=== PATIENT | male | born 1965 | race Caucasian/White ===

== ENCOUNTER 2024-05-23 09:02 | Day surgery (SDC) | payer OTHER ==
[2024-05-22 12:35] VITALS: BMI 27.8
[2024-05-23] MEDS ORDERED: Lidocaine 1% (PF) 30 ML VIAL ONE (11:37)
[2024-05-23] MEDS ORDERED: EPINEPHrine 1 MG/ML VIAL ONE (11:37)
[2024-05-23] MEDS ORDERED: PROPOFOL 20 ML ONE ×2 (11:55→12:17)
[2024-05-23] MEDS ORDERED: Lidocaine 1% PF 5 ML VIAL ONE (11:55)
[2024-05-23] MEDS ORDERED: fentaNYL PF 100 MCG/2 ML SYRINGE ONE (11:55)
[2024-05-23] MEDS ORDERED: Midazolam HCl 2 mg/2 ml Vial ONE (11:56)
[2024-05-23] MEDS ORDERED: Lidocaine 2% 6 ML (Jelly) SYR ONE (12:19)
[2024-05-23] MEDS ORDERED: Dexamethasone 20 MG/5 ML VIAL ONE (12:25)
[2024-05-23] MEDS ORDERED: fentaNYL 50 mcg/mL 1 mL Vial ONE (12:33)
[2024-05-23] MEDS ORDERED: CEFAZOLIN 1 GM VIAL ONE (12:35)
[2024-05-23] MEDS ORDERED: PHENYLEPHRINE-NS 100 MCG/ML 10 ML SYRINGE ONE (12:42)
[2024-05-23] MEDS ORDERED: Glycopyrrolate 0.2 MG/ML 5 ML SYRINGE ONE (12:47)
== END 2024-05-23 16:05 | disposition home or self-care (01) ==
LOC: SDC 09:02
PROVIDERS: ATTEND Otolaryngology Plastic Surgery within the Head & Neck
PROC: 0CTH0ZZ Resection of Left Submaxillary Gland, Open Approach (ICD-10-PCS; principal; 2024-05-23)
DX: K11.23 Chronic sialoadenitis (principal); K11.21 Acute sialoadenitis; K11.5 Sialolithiasis; Z87.891 Personal history of nicotine dependence
CPT/HCPCS: 88307; J0171; J0690; J1100; J2001; J2250; J2704; J3010